=== PATIENT | female | born 1960 | race Caucasian/White ===

== ENCOUNTER → 2019-02-14 09:14 | Outpatient (CLI) | payer OTHER, SELFPAY ==
[2019-02-14 10:43] LABS: Potassium 4.3 mmol/L (3.5-5.1)
== END ==
PROVIDERS: Family Provider Internal Medicine; PCP Internal Medicine; Referring Provider Otolaryngology Otolaryngology/Facial Plastic Surgery; Visit Provider Otolaryngology Otolaryngology/Facial Plastic Surgery
DX: Z79.899 Other long term (current) drug therapy (principal)
CPT/HCPCS: 36415; 84132

== ENCOUNTER → 2019-03-08 09:28 | Outpatient (CLI) | payer OTHER, SELFPAY ==
--- NOTE | 2019-03-08 09:32 | MRI_ITS ---
HISTORY: Right ear pain, fullness COMPARISON: None. TECHNIQUE: Multisequence multiplanar MR imaging of the internal auditory canals and brain per department protocol without and with 17 ml of Dotarem intravenous gadolinium. # of images including paperwork: 425 FINDINGS: IAC: Bilateral VII and VIII nerve complex are normal in size, morphology, and signal characteristics. No masses or abnormal enhancement. Bilateral cerebellopontine angle cisterns are within normal limits. Normal width of bilateral internal auditory canals. Cisternal aspect of bilateral trigeminal nerves have a normal appearance. No evidence of fluid is seen in the mastoid or middle ear cavities bilaterally. No evidence of soft tissue mass is seen involving the petrous portion of the temporal bones. Within the right aspect of the clivus is a nonenhancing, T1 isointense and T2 hyperintense lesion which is non-expansile without evidence for cortical destruction measuring 1.0 x 0.7 x 1.0 cm in greatest TV/AP/CC dimensions. No restricted diffusion. Normal appearing sella, pituitary infundibulum and optic chiasm. BRAIN: Diffusion-weighted imaging shows no acute infarct. No remote parenchymal infarct. No parenchymal hemorrhage, intra-axial mass, mass effect, or midline shift. No abnormal extra-axial fluid collections. Ventricles are normal in size and configuration. No hydrocephalus. No abnormal enhancing parenchymal or dural based lesions. Paranasal sinuses are clear. Orbits are unremarkable. IMPRESSION: 1. Right clival lesion 1.0 x 0.7 x 1.0 cm without enhancement, destruction, or bony expansion which cannot be characterized further. This is not the appearance of marrow conversion and further characterization is limited. Early manifestation of chordoma cannot be entirely excluded. Initially, correlation with skull base CT and if warranted follow-up PET CT may be of value to determine metabolic activity. 2. Otherwise, negative pre-and postcontrast MR examination of brain. 3. Negative MR examination of bilateral internal auditory canals. at 1212 Reported and signed by: Dakotah Coley MD Electronically Signed: Dakotah Coley MD at 12:11 EDT Tel , Service support , HISTORY: Right ear pain, fullness COMPARISON: None. TECHNIQUE: Multisequence multiplanar MR imaging of the internal auditory canals and brain per department protocol without and with 17 ml of Dotarem intravenous gadolinium. # of images including paperwork: 425 FINDINGS: IAC: Bilateral VII and VIII nerve complex are normal in size, morphology, and signal characteristics. No masses or abnormal enhancement. Bilateral cerebellopontine angle cisterns are within normal limits. Normal width of bilateral internal auditory canals. Cisternal aspect of bilateral trigeminal nerves have a normal appearance. No evidence of fluid is seen in the mastoid or middle ear cavities bilaterally. No evidence of soft tissue mass is seen involving the petrous portion of the temporal bones. Within the right aspect of the clivus is a nonenhancing, T1 isointense and T2 hyperintense lesion which is non-expansile without evidence for cortical destruction measuring 1.0 x 0.7 x 1.0 cm in greatest TV/AP/CC dimensions. No restricted diffusion. Normal appearing sella, pituitary infundibulum and optic chiasm. BRAIN: Diffusion-weighted imaging shows no acute infarct. No remote parenchymal infarct. No parenchymal hemorrhage, intra-axial mass, mass effect, or midline shift. No abnormal extra-axial fluid collections. Ventricles are normal in size and configuration. No hydrocephalus. No abnormal enhancing parenchymal or dural based lesions. Paranasal sinuses are clear. Orbits are unremarkable. MRI/Brain W/WO Contrast
== END ==
PROVIDERS: Family Provider Internal Medicine; PCP Internal Medicine; Referring Provider Otolaryngology Otolaryngology/Facial Plastic Surgery; Visit Provider Otolaryngology Otolaryngology/Facial Plastic Surgery
DX: H93.91 Unspecified disorder of right ear (principal)
CPT/HCPCS: 70553; A9575